=== PATIENT | male | born 1950 | race American Indian/Alaskan Native ===

== ENCOUNTER 2016-10-09 12:32 | Day surgery (SDC) | payer BC ==
[~2016-10-09 12:32] MED LIST: OMNIPAQUE 300 MG/50 ML (CATH LAB) IV ONE
[2016-10-09] MEDS ORDERED: ANCEF/STERILE WATER 2 GM/20 ML 2 GM/20 ML SYRINGE IV NR (13:00)
--- NOTE | 2016-10-09 13:50 | Anesthesia Consultation ---
Anesthesia Consult and Med Hx Date of service: 10/09/16 - Airway Anesthetic Teeth Evaluation: Poor, Chipped, Partials ROM Head & Neck: Adequate Mental/Hyoid Distance: Adequate Mallampati Class: Class II Intubation Access Assessment: Probably Good - Pulmonary Exam CTA: Yes - Cardiac Exam Cardiac Exam: RRR - Pre-Operative Health Status ASA Pre-Surgery Classification: ASA2 Proposed Anesthetic Plan: General - Pulmonary Hx Smoking: Yes (STOPPED 1969- 1/2PPD X 2 YRS) Hx Sleep Apnea: No (PSA PRE SCREEN LOW RISK) - Cardiovascular System Hx Hypertension: No Hx Heart Murmur: Yes (NO PROBLEMS) - Hematic Hx Anemia: Yes (NOT RECENT) - Other Systems Hx Alcohol Use: Yes (2 BEERS PER DAY) Hx Substance Use: Yes (MARIJUANA 3-4 X PER WEEK) Hx Cancer: Yes (prostate)
--- NOTE | 2016-10-09 13:50 | Anesthesia Day of Surgery ---
Anesthesia Day of Surgery - Day of Surgery Patient Examined: Yes Patient H&P Reviewed: Yes Patient is NPO: Yes
[2016-10-09] MEDS ORDERED: NACL 0.9% 1000 ML 1,000 ML IV SCH (14:00)
[2016-10-09] MEDS ORDERED: PEPCID PO NR (14:00)
[2016-10-09] MEDS ORDERED: VERSED IV NR (14:00)
[2016-10-09] MEDS ORDERED: SUBLIMAZE ONE ×2 (14:14→15:06)
[2016-10-09] MEDS ORDERED: DIPRIVAN 10 MG/ML IV ONE (14:15)
[2016-10-09] MEDS ORDERED: WATER FOR IRRIG STERILE IR ONE (14:25)
[2016-10-09] MEDS ORDERED: XYLOCAINE MPF 2% ONE ×2 (14:27→15:16)
[2016-10-09] MEDS ORDERED: ZOFRAN ONE (14:27)
[2016-10-09] MEDS ORDERED: DECADRON ONE (14:27)
[2016-10-09] MEDS ORDERED: OMNIPAQUE 300 MG/50 ML (CATH LAB) IV ONE ×2 (14:40)
--- NOTE | 2016-10-09 15:08 | Post Operative Note ---
Pre-op diagnosis: + cytology heme and prev xrt Post-op diagnosis: same Findings: Significant increased vascularity Procedure: Procedure Preop diagnosis hematuria positive cytology Postop diagnosis same with previous radiation for prostate cancer metastatic prostate cancer Procedure cystoscopy retrograde biopsies fulguration Surgeon Dr. maria Anesthesia Gen. Findings This is a patient with metastatic prostate cancers had previous radiation who presents with hematuria and positive cytology Procedure Patient was brought the operating room placed on open table. Following induction of anesthesia placed in lithotomy position prepped and draped in usual sterile fashion Cystourethroscopy showed an open bladder neck from previous prostatectomy. There was lots of telangiectasias throughout the bladder. There was a little raised area on the right side of the bladder wall which was biopsied and excised and fulgurated. Biopsies left lateral wall and posterior wall were taken in the areas fulgurated. Patient noted procedure well retrograde showed delicate ureters good drainage. No significant bleeding Childs was left will be removed prior to discharge. Patient now procedure well no significant bleeding family notified and brought to recovery 70 condition thank you Surgeon: LETI MARIA Estimated blood loss: none Pathology: list (bladder) Specimen disposition: to lab Condition: stable Disposition: PACU
--- NOTE | 2016-10-09 15:09 | Discharge Summary ---
Short Stay Discharge Plan Activity: other (no straining ) Weight Bearing Status: Full Weight Bearing Diet: regular Special Instructions: other (inc fluids ) Follow up with: EMERSON UNGER MD [Primary Care Provider] - 7 Days LETI AGUIRRE MD [Staff Physician] - 7 Days
[2016-10-09] MEDS: DILAUDID IV PRN ×2 (15:27→15:40)
[2016-10-09] MEDS ORDERED: DILAUDID ONE (15:31)
--- NOTE | 2016-10-09 15:39 | Fluoroscopy Report ---
Retrograde pyelogram: Prostate cancer, hematuria. The initial image demonstrates adenectomy clips in the pelvis. Injection of contrast into the distal ureters bilaterally demonstrated good filling of both ureters and intrarenal collecting systems with no filling defects or deformities noted.
[2016-10-09 17:41] VITALS: BP 151/91
== END 2016-10-09 17:45 | disposition home or self-care (01) ==
LOC: OR 12:32
PROVIDERS: ATTEND Urology
DX: I78.1 Nevus, non-neoplastic (principal); F12.90 Cannabis use, unspecified, uncomplicated; Z85.46 Personal history of malignant neoplasm of prostate; Z87.891 Personal history of nicotine dependence; Z72.89 Other problems related to lifestyle; Z79.899 Other long term (current) drug therapy
CPT/HCPCS: 52204; 74420; 88112; 88305; A4217; C1758; J0690; J1100; J1170; J2250; J2405; J2704; J3010; J7030; Q9967

== ENCOUNTER 2016-11-01 07:53 | Outpatient (CLI) | payer BC ==
--- NOTE | 2016-11-01 14:35 | Cat Scan Report ---
CT ABDOMEN PELVIS WITHOUT CONTRAST History: Prostate cancer. Technique: Helical CT with sagittal and coronal reformatted images. Findings: Numerous small blastic bony lesions are identified throughout the thoracolumbar spine and pelvis consistent with metastatic disease. There is no evidence for pathologic fracture. The liver, biliary system, pancreas, spleen, kidneys and adrenal glands are within normal limits. The bowel loops are normal caliber and wall thickness. Normal appendix. Surgical clips are noted the base of the bladder suggesting prostatectomy changes. The bladder and distal ureters are unremarkable. No pelvic, abdominal or retroperitoneal adenopathy is appreciated. Impression: Numerous small blastic bony lesions throughout the thoracolumbar spine and pelvis consistent with metastatic prostate cancer. No solid organ mass or adenopathy is detected.
== END 2016-11-01 07:54 | disposition home or self-care (01) ==
LOC: CT 07:53
PROVIDERS: ATTEND Urology
DX: C61 Malignant neoplasm of prostate (principal); R31.29 Other microscopic hematuria; M53.85 Other specified dorsopathies, thoracolumbar region; Z90.79 Acquired absence of other genital organ(s); D64.9 Anemia, unspecified; Z87.891 Personal history of nicotine dependence
CPT/HCPCS: 74176

== ENCOUNTER 2018-07-02 08:36 | Outpatient (CLI) | payer MEDICARE ==
--- NOTE | 2018-07-02 14:12 | Nuclear Medicine Report ---
BONE SCAN: History: Prostate cancer. Technique: Whole-body imaging was obtained 3 hours after injection of 25 mCi of technetium 99m MDP. Findings: Comparison is made to the bone scan dated 07/07/[address] abdomen pelvis without contrast performed the same day. CT performed the same day demonstrates numerous sclerotic bony lesions throughout the visualized ribs, spine, pelvis and proximal femurs. The bone scan demonstrates very subtle mottled uptake of the radiotracer throughout the bilateral ribs, spine, pelvis and bilateral proximal femurs. Uptake is most pronounced at the L3 level. IMPRESSION: Diffuse bony metastasis.
--- NOTE | 2018-07-02 15:07 | Cat Scan Report ---
CT ABDOMEN PELVIS WITHOUT CONTRAST: HISTORY: Prostate cancer. COMPARISON: 11/01/16. TECHNIQUE: Helical CT in 1.25mm intervals without IV contrast. Sagittal and coronal reconstructions. FINDINGS: Lung bases: Normal. Liver: Normal. Biliary system: Normal. Pancreas: A 1.6 cm cyst is identified in the pancreatic head. The remainder of the pancreas is unremarkable. Spleen: Normal. Kidneys/ureters/bladder: Normal. Adrenal glands: Normal. Aorta: Mild diffuse calcifications. No aneurysm. Intestines: Normal. Appendix: Not identified. Pelvic viscera: Prostatectomy changes are suspected. Ascites: None. Adenopathy: None. Musculoskeletal: 2 mm sclerotic bony lesions are identified throughout the visualized lower ribs, spine, pelvis and proximal femurs. IMPRESSION: Diffuse bony metastasis. No solid organ mass or adenopathy is identified.
== END 2018-07-02 08:37 | disposition home or self-care (01) ==
LOC: NM 08:36
PROVIDERS: ATTEND Urology
DX: C61 Malignant neoplasm of prostate (principal); K86.2 Cyst of pancreas; K21.9 Gastro-esophageal reflux disease without esophagitis; Z87.891 Personal history of nicotine dependence; Z72.89 Other problems related to lifestyle
CPT/HCPCS: 74176; 78306; A9503

== ENCOUNTER 2020-06-22 10:51 | Emergency (ER) | payer MEDICARE ==
--- NOTE | 2020-06-22 11:29 | Electrocardiograph Report ---
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
--- NOTE | 2020-06-22 12:03 | XRay Report ---
CHEST 1 VIEW 06/22/2020 10:54 AM INDICATION / CLINICAL INFORMATION: Chest Pain. COMPARISON: None available. FINDINGS: SUPPORT DEVICES: None. HEART / MEDIASTINUM: The heart size and pulmonary vasculature are normal. The aorta is normal in jennifer lenin. LUNGS / PLEURA: No significant pulmonary or pleural abnormality. No pneumothorax. ADDITIONAL FINDINGS: There are mild degenerative changes involving the right shoulder. IMPRESSION: No acute findings. Signer Name: Librado Vee MD Signed: 06/22/2020 11:58 AM Workstation Name: [id number]
[2020-06-22 12:06] LABS: Bilirubin,Urine NEG (Negative); Blood,Urine SM (Negative); Color,Urine Yellow (Yellow); Mucus,Urine FEW /HPF; Protein,Urine <15 mg/dL mg/dL (Negative); Urobilinogen,Urine < 2.0 mg/dL (<2.0)
[2020-06-22 12:32] LABS: Basophils # (Auto) 0.1 K/mm3 (0.0-0.1); Basophils % (Auto) 0.7 % (0.0-1.8); Eosinophils # (Auto) 0.1 K/mm3 (0.0-0.4); Eosinophils % (Auto) 0.7 % (0.0-4.3); Hematocrit 33.1 % (35.5-45.6); Hemoglobin 11.1 gm/dl (11.8-15.2); Lymphocytes # (Auto) 1.9 K/mm3 (1.2-5.4); Lymphocytes % (Auto) 20.1 % (13.4-35.0); Mean Corpuscular HGB Conc 34 % (32-34); Mean Corpuscular Volume 96 fl (84-94); Monocytes # (Auto) 0.7 K/mm3 (0.0-0.8); Monocytes % (Auto) 7.4 % (0.0-7.3); Platelet Count 271 K/mm3 (140-440); Red Blood Count 3.47 M/mm3 (3.65-5.03); Red Cell Distribution Width 16.1 % (13.2-15.2)
[2020-06-22 13:00] LABS: Alanine Aminotransferase 7 units/L (7-56); Albumin 3.6 g/dL (3.9-5); BUN/Creatinine Ratio 14; Blood Urea Nitrogen 11 mg/dL (9-20); Calcium 8.8 mg/dL (8.4-10.2); Hemolysis Index 25
[2020-06-22] MEDS ORDERED: SODIUM CHLORIDE 0.9% 1000 ML 1,000 ML IV ONE (13:13)
--- NOTE | 2020-06-22 13:33 | Emergency Department Report ---
ED Syncope HPI - General Chief Complaint: Dizziness Stated Complaint: FEELING FAINT Time Seen by Provider: 06/22/20 11:04 - History of Present Illness Initial Comments: Chief complaint: I felt faint as if I was going to pass out. HPI: This is a 70-year-old male with history of metastatic cancer status post prostatectomy in remission for the past 16 years until recurrence 5 months ago. Patient states that his a has a has increased from 190 to 254. 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 Patient has been in his normal state of health. He felt faint this morning sudden onset. EMS arrived to the home. EMS discovered patient to have bradycardia heart rate 45 bpm. Blood pressure 80/40. Patient had back pain yesterday after "overdoing it while fishing over the weekend". He denies any back pain at this time. Once transported to the emergency department, he feels much better. He denies fever headache sore throat chest pain stomach pain. I have reviewed patient's medications including:Zytiga, Eligard, Prednisone Timing/Prior Episodes: other (Near syncope today) Precipitating Factors: Positive: lightheadedness Loss of Consciousness: no loss of consciousness Current Symptoms: back to normal - Related Data Allergies/Adverse Reactions: Allergies No Known Allergies Allergy (Verified 10/04/16 10:11) Home Medications: Ambulatory Orders Abiraterone Acetate (Nf) [Zytiga (Nf)] 1,000 mg PO QDAY 10/03/16 Leuprolide Acetate [Eligard] 45 mg SQ [id number] 10/03/16 Prednisone [predniSONE (Barrie) ER TAB] 2 mg PO BID 10/03/16 ED Review of Systems ROS: Stated complaint: FEELING FAINT Other details as noted in HPI Comment: All other systems reviewed and negative Constitutional: denies: fever, malaise Respiratory: denies: cough, shortness of breath Cardiovascular: denies: chest pain, palpitations Gastrointestinal: denies: abdominal pain, nausea, vomiting ED Past Medical Hx - Past Medical History Previous Medical History?: Yes Hx Hypertension: No Hx GERD: Yes Hx of Cancer: Yes - Surgical History Past Surgical History?: Yes Additional Surgical History: Prostatectomy - Social History Smoking Status: Never Smoker Substance Use Type: None - Medications Home Medications: Home Medications Medication Instructions Recorded Confirmed Last Taken Type Abiraterone Acetate (Nf) [Zytiga 1,000 mg PO QDAY 10/03/16 10/09/16 10/09/16 13:00 History (Nf)] Leuprolide Acetate [Eligard] 45 mg SQ [id number] 10/03/16 10/09/16 05/10/16 History Prednisone [predniSONE (Barrie) ER 2 mg PO BID 10/03/16 10/09/16 10/09/16 09:00 History TAB] ED Physical Exam - General Limitations: No Limitations General appearance: alert, in no apparent distress, other (Ambulatory no difficulty, no orthostasis) - Head Head exam: Present: atraumatic, normocephalic - Eye Eye exam: Present: normal appearance - ENT ENT exam: Present: mucous membranes moist - Neck Neck exam: Present: normal inspection, full ROM - Respiratory Respiratory exam: Present: normal lung sounds bilaterally. Absent: respiratory distress, wheezes, rales, rhonchi - Cardiovascular Cardiovascular Exam: Present: regular rate, normal rhythm, normal heart sounds. Absent: systolic murmur, diastolic murmur, rubs, gallop - GI/Abdominal GI/Abdominal exam: Present: soft, normal bowel sounds. Absent: distended, tenderness, guarding, rebound - Rectal Rectal exam: Present: deferred - Extremities Exam Extremities exam: Present: normal inspection - Neurological Exam Neurological exam: Present: alert, oriented X3, normal gait - Psychiatric Psychiatric exam: Present: normal affect, normal mood - Skin Skin exam: Present: warm, dry, intact, normal color. Absent: rash ED Course Vital Signs 06/22/20 06/22/20 06/22/20 11:01 11:10 11:11 Temperature 98.2 F 98.2 F Pulse Rate 61 58 L Pulse Rate [ 58 L Lying] Pulse Rate [ 61 Sitting] Pulse Rate [ 75 Standing] Respiratory 16 16 Rate Blood Pressure 146/69 Blood Pressure 136/67 [Lying] Blood Pressure 146/69 [Right] Blood Pressure 144/73 [Sitting] Blood Pressure 158/79 [Standing] O2 Sat by Pulse 97 98 Oximetry ED Medical Decision Making - Lab Data Result diagrams: 06/22/20 11:37 06/22/20 11:37 - EKG Data -: EKG Interpreted by Me EKG shows normal: sinus rhythm, axis, intervals, QRS complexes, ST-T waves Rate: normal, tachycardia - EKG Data Interpretation: normal EKG 06/22/20 13:29 EKG obtained 1112 EKG interpreted by il Rate 60 bpm normal sinus rhythm normal rate normal axis normal intervals no ST elevation no ST-T signs of ischemia normal EKG - Radiology Data Radiology results: report reviewed Findings Reporting MD: Librado Vee Dictation Time: June 22, 2020 10:58 Preparole Counseling Aide: Not available Cylinder Checker Date: CHEST 1 VIEW 06/22/2020 10:54 AM INDICATION / CLINICAL INFORMATION: Chest Pain. COMPARISON: None available. FINDINGS: SUPPORT DEVICES: None. HEART / MEDIASTINUM: The heart size and pulmonary vasculature are normal. The aorta is normal in caliber. LUNGS / PLEURA: No significant pulmonary or pleural abnormality. No pneumothorax. ADDITIONAL FINDINGS: There are mild degenerative changes involving the right shoulder. IMPRESSION: No acute findings. - Medical Decision Making Vasovagal near syncope: Patient is currently symptom-free. Patient appears to have a significant vagal reaction leading to bradycardia and hypotension. No evidence of sepsis or pulmonary embolism. Acute myocardial infarction ruled out with two negative troponin values. Work-up unremarkable with nonspecific elevation of lactic acid which is likely generated by patient's known metastatic cancer. CBC chemistry urinalysis otherwise within acceptable limits TSH WNL Critical care attestation.: If time is entered above; I have spent that time in minutes in the direct care of this critically ill patient, excluding procedure time. ED Disposition Clinical Impression: Vasovagal near syncope, Metastatic malignant neoplasm to prostate Disposition: DC-01 TO HOME OR SELFCARE Is pt being admited?: No Does the pt Need Aspirin: No Condition: Stable Instructions: Near-Syncope Referrals: EMERSON UNGER MD [Primary Care Provider] - 3-5 Days
[2020-06-22 16:10] VITALS: BP 146/71
== END 2020-06-22 15:40 | disposition home or self-care (01) ==
LOC: ED 10:51
DX: C79.82 Secondary malignant neoplasm of genital organs (principal); R55 Syncope and collapse; K21.9 Gastro-esophageal reflux disease without esophagitis; Z90.89 Acquired absence of other organs; Z79.899 Other long term (current) drug therapy
CPT/HCPCS: 36415; 71045; 80053; 81001; 82140; 83880; 84443; 84484; 85025; 87040; 93005; 96360; 99284; J7030

== ENCOUNTER 2021-05-20 17:58 | Observation (INO) | payer MEDICARE ==
[2021-05-20] MEDS ORDERED: SODIUM CHLORIDE 0.9% 500 ML 500 ML IV ONE (20:06)
[2021-05-20 20:54] LABS: Hematocrit 31.9 % (35.5-45.6); Hemoglobin 9.9 gm/dl (11.8-15.2); Mean Corpuscular HGB Conc 31 % (32-34); Mean Corpuscular Volume 97 fl (84-94); Platelet Count 136 K/mm3 (140-440); Red Blood Count 3.29 M/mm3 (3.65-5.03)
[2021-05-20 21:12] LABS: Red Cell Distribution Width 21.7 % (13.2-15.2)
[2021-05-20 21:14] LABS: INR 0.89 (0.87-1.13)
[2021-05-20 21:26] LABS: Alanine Aminotransferase 9 units/L (7-56); Albumin 3.9 g/dL (3.9-5); Blood Urea Nitrogen 12 mg/dL (9-20); Calcium 8.6 mg/dL (8.4-10.2); Hemolysis Index 11
[2021-05-20 21:32] LABS: BUN/Creatinine Ratio 20
[2021-05-20] MEDS ORDERED: LACTATED RINGERS 1,000 ML IV ONE (21:34)
[2021-05-20 21:39] LABS: Uric Acid 5.3 mg/dL (3.5-7.6)
[2021-05-20 21:53] LABS: Basophils % (Manual) 0 % (0.0-1.8); Eosinophils % (Manual) 0 % (0.0-4.3); Total Cells Counted 200
[2021-05-20 21:54] LABS: Anisocytosis 1+; Platelet Estimate Consistent w Auto
[2021-05-20] MEDS ORDERED: predniSONE 5 MG TAB PO ONE (23:41)
[2021-05-21] MEDS ORDERED: SODIUM CHLORIDE 0.9% 500 ML 500 ML ONE (01:14)
[2021-05-21] MEDS ORDERED: ACETAMINOPHEN 325 MG TAB PO PRN (01:33)
[2021-05-21] MEDS ORDERED: NITROGLYCERIN 0.4 MG TAB SUBL SL PRN (01:33)
[2021-05-21] MEDS ORDERED: MORPHINE 4 MG/1 ML INJ IV PRN (01:33)
[2021-05-21] MEDS ORDERED: traMADol 50 MG TAB PO PRN (01:33)
[2021-05-21] MEDS ORDERED: SODIUM CHLORIDE 0.9% 1000 ML 1,000 ML IV SCH (01:45)
[2021-05-21] MEDS ORDERED: LEUPROLIDE ACETATE 45 MG SQ SCH (01:45)
[2021-05-21] MEDS: cefTRIAXone/NS 2 GM/100 ML 2 GM/100 ML BAG IV SCH (02:30)
[2021-05-21 03:22] LABS: Hematocrit 28.5 % (35.5-45.6); Hemoglobin 8.9 gm/dl (11.8-15.2); Mean Corpuscular HGB Conc 31 % (32-34); Mean Corpuscular Volume 96 fl (84-94); Platelet Count 114 K/mm3 (140-440); Red Blood Count 2.95 M/mm3 (3.65-5.03)
[2021-05-21 03:30] LABS: Blood Urea Nitrogen 10 mg/dL (9-20); Calcium 8.4 mg/dL (8.4-10.2); Hemolysis Index 3
[2021-05-21 03:32] LABS: Red Cell Distribution Width 21.6 % (13.2-15.2)
[2021-05-21 03:33] LABS: BUN/Creatinine Ratio 20
[2021-05-21 04:53] LABS: Anisocytosis 1+; Basophils % (Manual) 0.5 % (0.0-1.8); Eosinophils % (Manual) 0 % (0.0-4.3); Platelet Estimate Consistent w Auto; Total Cells Counted 200
[2021-05-21] MEDS ORDERED: ABIRATERONE ACETATE 250 MG PO SCH (10:00)
[2021-05-21 12:04] LABS: Bilirubin,Urine NEG (Negative); Blood,Urine MOD (Negative); Color,Urine Straw (Yellow); Mucus,Urine FEW /HPF; Protein,Urine <15 mg/dL mg/dL (Negative); Urobilinogen,Urine < 2.0 mg/dL (<2.0)
[2021-05-21] MEDS: PANTOPRAZOLE 40 MG TAB PO SCH (12:25)
[2021-05-21] MEDS: HEPARIN 5,000 UNIT/1 ML VIAL SUB-Q SCH ×2 (12:25→22:53)
[2021-05-21] MEDS: PREDNISONE 2 MG PO SCH ×2 (15:38→22:54)
[2021-05-22] MEDS: cefTRIAXone/NS 2 GM/100 ML 2 GM/100 ML BAG IV SCH (02:15)
[2021-05-22] MEDS ORDERED: ASPIRIN EC 325 MG TAB PO SCH (10:00)
[2021-05-22] MEDS: HEPARIN 5,000 UNIT/1 ML VIAL SUB-Q SCH (10:34)
[2021-05-22] MEDS: PANTOPRAZOLE 40 MG TAB PO SCH (10:35)
[2021-05-22 12:47] VITALS: BP 117/63
== END 2021-05-22 15:12 | disposition home or self-care (01) ==
LOC: ED 17:58 → 4A 05-21 01:33 → INTOOBSV 05-21 01:33 → 4A 05-21 21:09
PROVIDERS: ADMIT Hospitalist; ATTEND Hospitalist
DX: R55 Syncope and collapse (principal); R65.10 Systemic inflammatory response syndrome (SIRS) of non-infectious origin without acute organ dysfunction; C61 Malignant neoplasm of prostate; C79.51 Secondary malignant neoplasm of bone; D72.829 Elevated white blood cell count, unspecified; K21.9 Gastro-esophageal reflux disease without esophagitis; Z79.899 Other long term (current) drug therapy; Z98.890 Other specified postprocedural states; Z79.82 Long term (current) use of aspirin
CPT/HCPCS: 36415; 71045; 71275; 80048; 80053; 81001; 82140; 83735; 84100; 84145; 84443; 84484; 84550; 85025; 85379; 85610; 87040; 87086; 93005; 93010; 96365; 96366; 99285; C8929; G0378; J0696; J1644; J7030; J7040; J7120; J7512; Q9967; 80320; 85007; 93306; Q0162; G0480

== ENCOUNTER 2021-12-25 12:36 | Outpatient (CLI) | payer MEDICARE ==
[2021-12-25 13:21] LABS: Hematocrit 28.3 % (35.5-45.6); Mean Corpuscular HGB Conc 32 % (32-34); Mean Corpuscular Volume 96 fl (84-94); Platelet Count 125 K/mm3 (140-440); Red Blood Count 2.96 M/mm3 (3.65-5.03); Red Cell Distribution Width 19.5 % (13.2-15.2)
[2021-12-25 14:02] LABS: Alanine Aminotransferase 10 units/L (7-56); BUN/Creatinine Ratio 11; Blood Urea Nitrogen 9 mg/dL (9-20); Calcium 9.3 mg/dL (8.4-10.2); Hemolysis Index 10
[2021-12-29 14:35] LABS: Vitamin D, 25-OH, D2 <4 ng/mL
== END 2021-12-25 12:37 | disposition home or self-care (01) ==
LOC: LAB 12:36
PROVIDERS: ATTEND Specialist
DX: G61.9 Inflammatory polyneuropathy, unspecified (principal); G72.9 Myopathy, unspecified; R73.03 Prediabetes
CPT/HCPCS: 36415; 80053; 82085; 82306; 82550; 82607; 83036; 83921; 84443; 85027